=== PATIENT | male | born 1965 | race Caucasian/White ===

== ENCOUNTER → 2016-10-04 | Outpatient (CLI) | payer OTHER ==
[2016-10-04 19:48] LABS: URIC ACID 5.7 MG/DL (3.5-7.2)
[2016-10-07 00:06] LABS: Lyme Disease IgG/IgM Antibodie <0.91 ISR (0.00-0.90); Lyme Disease IgM Ab Quantitati <0.80 index (0.00-0.79)
== END ==
LOC: M LAB 18:29
PROVIDERS: ATTEND Orthopaedic Surgery
DX: R22.31 Localized swelling, mass and lump, right upper limb (principal)

== ENCOUNTER 2017-06-02 06:07 | Emergency (ER) | payer OTHER ==
[2017-06-02 06:54] LABS: BASO % 0.4 % (0.0-1.0); EOS # 0.4 10^3/uL (0.0-0.50); EOS % 7.1 % (0.0-3.0); HEMATOCRIT 42.9 % (42.0-52.0); HEMOGLOBIN 15.1 g/dl (13.5-17.5); IMMATURE GRANULOCYTE % 0.4 % (0-3.0); LYMPH % 35.7 % (24.0-44.0); MEAN CORPUSCULAR HEMOGLOBIN 30.3 pg (27.0-33.0); MEAN CORPUSCULAR HGB CONC 35.2 g/dl (32.0-36.5); MONO # 0.4 10^3/uL (0.0-0.8); MONO % 7.5 % (0.0-5.0); NEUTROPHILS # 2.7 10^3/uL (1.8-7.7); NEUTROPHILS % 48.9 % (36.0-66.0); PLATELET COUNT, AUTOMATED 227 10^3/uL (150-450); RED BLOOD COUNT 4.99 10^6/uL (4.30-6.10); RED CELL DISTRIBUTION WIDTH 12.3 % (11.5-14.5); WHITE BLOOD COUNT 5.6 10^3/uL (4.0-10.0)
[2017-06-02 07:12] LABS: ANION GAP 6 MEQ/L (8-16); BLOOD UREA NITROGEN 16 MG/DL (7-18); CALCIUM LEVEL 8.6 MG/DL (8.5-10.1); CARBON DIOXIDE LEVEL 26 MEQ/L (21-32); CHLORIDE LEVEL 111 MEQ/L (98-107); CK-MB VALUE MASS 1.2 NG/ML (<3.6); CPK CREATINE PHOSPHOKINASE 111 U/L (39-308); CREATININE FOR GFR 0.97 MG/DL (0.70-1.30); GLOMERULAR FILTRATION RATE > 60.0 (>56); GLUCOSE, FASTING 97 MG/DL (70-100); MB/CK RELATIVE INDEX 1.08 (< OR =4); POTASSIUM SERUM 4.3 MEQ/L (3.5-5.1); SODIUM LEVEL 143 MEQ/L (136-145); TROPONIN I < 0.02 NG/ML (< 0.10)
[2017-06-02] MEDS: KETOROLAC 30 MG/ML VIAL (J1885) IV (07:30)
[2017-06-02] MEDS: METHOCARBAMOL 750 MG TAB PO (07:32)
== END 2017-06-02 08:05 | disposition home or self-care (01) ==
LOC: M ED 06:07
DX: S46.812A Strain of other muscles, fascia and tendons at shoulder and upper arm level, left arm, initial encounter (principal); M50.30 Other cervical disc degeneration, unspecified cervical region; M47.9 Spondylosis, unspecified; M12.9 Arthropathy, unspecified; Z79.899 Other long term (current) drug therapy
CPT/HCPCS: J1885

== ENCOUNTER → 2018-03-17 | Outpatient (REF) | payer OTHER ==
[~2018-03-17] MED LIST: CALA240T PO; LIPI20TA PO; LOSA50TA88 PO; NAPR-885 PO; NEXI40CA PO; ROBA500T PO
== END ==
LOC: M LAB REF 11:57
PROVIDERS: ATTEND Internal Medicine
DX: Z51.81 Encounter for therapeutic drug level monitoring (principal); K21.9 Gastro-esophageal reflux disease without esophagitis

== ENCOUNTER → 2018-06-08 | Outpatient (REF) | payer OTHER ==
[2018-06-08 18:25] LABS: C REACTIVE PROTEIN QUANTITATIV 0.56 MG/DL (0.00-0.30); URIC ACID 5.8 MG/DL (3.5-7.2)
[2018-06-11 00:06] LABS: Lyme Disease IgG/IgM Antibodie <0.91 ISR (0.00-0.90); Lyme Disease IgM Ab Quantitati <0.80 index (0.00-0.79)
== END ==
LOC: M LAB REF 17:03
PROVIDERS: ATTEND Internal Medicine
DX: M79.10 Myalgia, unspecified site (principal)

== ENCOUNTER 2019-01-12 01:41 | Inpatient (IN) | payer OTHER ==
[~2019-01-12] VITALS: Ht 172.7 cm; Wt 94.4 kg
[2019-01-12] MEDS ORDERED: OSEL75CA PO ×2 (01:45)
[2019-01-12] MEDS ORDERED: LOPE-39 PO (01:47)
[2019-01-12] MEDS ORDERED: NS 1,000 ML IV SCH (02:05)
[2019-01-12] MEDS ORDERED: MORPHINE 4 MG/ML 1ML VIAL/SYRINGE (J2270) IV ONE ×2 (02:15→05:00)
[2019-01-12 03:03] LABS: BASO % 0.2 % (0.0-1.0); EOS # 0.2 10^3/uL (0.0-0.5); EOS % 1.7 % (0.0-3.0); HEMATOCRIT 36.5 % (42.0-52.0); HEMOGLOBIN 13.1 g/dl (13.5-17.5); LYMPH # 1.4 10^3/uL (1.5-5.0); LYMPH % 14.9 % (24.0-44.0); MEAN CORPUSCULAR HEMOGLOBIN 30.8 pg (27.0-33.0); MEAN CORPUSCULAR HGB CONC 35.9 g/dl (32.0-36.5); MEAN CORPUSCULAR VOLUME 85.7 fl (80.0-96.0); MONO % 11.1 % (0.0-5.0); NEUTROPHILS # 6.7 10^3/uL (1.5-8.5); NEUTROPHILS % 71.9 % (36.0-66.0); PLATELET COUNT, AUTOMATED 183 10^3/uL (150-450); RED BLOOD COUNT 4.26 10^6/uL (4.30-6.10); WHITE BLOOD COUNT 9.3 10^3/uL (4.0-10.0)
[2019-01-12 03:28] LABS: CK-MB VALUE MASS < 1.0 NG/ML (<3.6); CPK CREATINE PHOSPHOKINASE 65 U/L (39-308); MB/CK RELATIVE INDEX 1.54 (< OR =4); TROPONIN I < 0.02 NG/ML (< 0.10)
--- NOTE | 2019-01-12 03:30 | REPVR ---
PROCEDURE INFORMATION: Exam: US Abdomen Limited, Right Upper Quadrant Exam date and time: 01/12/19 (2:53am) Age: 53 years old Clinical history: RUQ pain. Possible cholecystitis. TECHNIQUE: Imaging protocol: Real-time ultrasound of the abdomen with image documentation. Examination was focused on the right upper quadrant. COMPARISON: No relevant prior studies available FINDINGS: The liver is visually normal in size. No focal lesions. Probable fatty infiltration. The gallbladder has normal wall thickness, with no stones nor sludge seen. No pericholecystic fluid is appreciated. The CBD is not dilated (3.8 mm diameter). The pancreas is obscured by bowel gas. The right kidney measures 10.9 cm in length, with no hydronephrosis appreciated. No ascites is seen. IMPRESSION: No acute pathology. The gallbladder is unremarkable, with no stones identified. No biliary obstruction. The pancreas is obscured by bowel gas. Electronically signed by: Kamila Hubbard On 01/12/2019 03:30:14 AM
[2019-01-12 03:31] LABS: BLOOD UREA NITROGEN 10 MG/DL (7-18); GLUCOSE, FASTING 101 MG/DL (70-100)
[2019-01-12 03:32] LABS: ALBUMIN 3.2 GM/DL (3.2-5.2); ALT/SGPT 43 U/L (12-78); BILIRUBIN,DIRECT 0.3 MG/DL (0.0-0.2); BILIRUBIN,TOTAL 0.8 MG/DL (0.2-1.0); CALCIUM LEVEL 8.3 MG/DL (8.5-10.1); CARBON DIOXIDE LEVEL 26 MEQ/L (21-32); CHLORIDE LEVEL 107 MEQ/L (98-107); GLOMERULAR FILTRATION RATE > 60.0 (>56); LIPASE 1755 U/L (73-393); POTASSIUM SERUM 3.5 MEQ/L (3.5-5.1); SODIUM LEVEL 138 MEQ/L (136-145); TOTAL PROTEIN 6.9 GM/DL (6.4-8.2)
[2019-01-12] MEDS ORDERED: ISOVUE-370 76% 100ML VIAL (Q9967) As Ordered ONE (03:37)
[2019-01-12] MEDS ORDERED: VERA180C3 PO (04:07)
[2019-01-12] MEDS ORDERED: ACET-897 PO (04:07)
[2019-01-12] MEDS ORDERED: NEXI40CA PO (04:07)
[2019-01-12] MEDS ORDERED: LOPE2TAB12 PO (04:07)
[2019-01-12] MEDS ORDERED: LOSA100T50 PO (04:07)
[2019-01-12] MEDS ORDERED: ATOR40TA75 PO (04:07)
[2019-01-12] MEDS ORDERED: METH1TAB40 PO (04:09)
[2019-01-12] MEDS ORDERED: CYCL10TA PO (04:09)
--- NOTE | 2019-01-12 04:41 | REPVR ---
PROCEDURE INFORMATION: Exam: CT Abdomen And Pelvis With Contrast Exam date and time: 01/12/2019 3:44 AM Age: 53 years old Clinical history: Abdominal pain; Localized; Other: Central; Additional info: Central abd pain, elevated lipase TECHNIQUE: Imaging protocol: Computed tomography of the abdomen and pelvis with intravenous contrast. Radiation optimization: All CT scans at this facility use at least one of these dose optimization techniques: automated exposure control; mA and/or kV adjustment per patient size (includes targeted exams where dose is matched to clinical indication); or iterative reconstruction. Contrast material: ISOVUE 370; Contrast volume: 100 ml; Contrast route: IV; COMPARISON: US Abdomen 2019-01-12 02:52 FINDINGS: Lungs: Dependent subsegmental pulmonary atelectasis. Liver: Normal. No mass. Gallbladder and bile ducts: Mild haziness around the gallbladder. Pancreas: Pancreatic divisum. No evidence of acute pancreatitis. Spleen: Normal. No splenomegaly. Adrenals: Normal. No mass. Kidneys and ureters: Normal. No hydronephrosis. Stomach and bowel: Excess fluid in the colon. Colonic mucosal enhancement. Correlate for colitis. Gastric wall thickening and enhancement, correlate for gastritis. Appendix: No evidence of appendicitis. Intraperitoneal space: Unremarkable. No free air. No significant fluid collection. Vasculature: Mild to moderate aortic and iliac artery atherosclerotic calcification. Lymph nodes: Subtle minimal herber appearance of the mesentery with tiny scattered lymph nodes. Bladder: Unremarkable as visualized. Reproductive: Unremarkable as visualized. Bones/joints: Unremarkable. No acute fracture. Soft tissues: Unremarkable. IMPRESSION: 1. Excess fluid in the colon. Colonic mucosal enhancement. Correlate for colitis. 2. Gastric wall thickening and enhancement, correlate for gastritis . 3. Mild haziness around the gallbladder. 4. Subtle minimal herber appearance of the mesentery with tiny scattered lymph nodes. 5. Incidental pancreatic divisum. Electronically signed by: Ricky Ochoa On 01/12/2019 04:40:57 AM
--- NOTE | 2019-01-12 04:58 | HPEPDOC ---
[facility] Medical History & Physical Date of Admission Jan 12, 2019 Date of Service: Jan 12, 2019 Primary Care Physician: Yoanna Borjas Attending Physician: JASVIR REIS MD History and Physical TIME OF SERVICE: 5:40 AM CHIEF COMPLAINT: Abdominal pain HISTORY OF PRESENT ILLNESS: This is a 53-year-old male who presents with complaints of central and right upper quadrant abdominal pain that began on Wednesday. He came to the hospital today because the pain got worse. Associated symptoms include nonbloody diarrhea and chills. He denies having fever or vomiting. He has had similar pain in the past, but did not come to the hospital for evaluation. REVIEW OF SYSTEMS: 12 point review of systems negative except as listed in HPI PAST MEDICAL/ SURGICAL HISTORY: Chronic hypertension. Dyslipidemia. Hiatal hernia. Carpal tunnel surgery. Tonsillectomy. Denies personal history of diabetes. SOCIAL HISTORY: He does not smoke. He drinks alcohol frequently and drinks 5-8 beverages every time he drinks. FAMILY HISTORY: Diabetes. Cancer. CAD. ALLERGIES: Please see below. HOME MEDICATIONS: Please see below. PHYSICAL EXAMINATION: VITAL SIGNS: Please see below. GENERAL APPEARANCE: Well nourished, well-developed, appears to be in pain, does not appear toxic HEENT:Normocephalic, atraumatic. Mucous membranes moist and pink. Sclera anicteric CARDIOVASCULAR: Rate and rhythm. No murmurs, rubs or gallops LUNGS:. Clear to auscultation bilaterally on room air ABDOMEN: Positive bowel sounds. Abdomen soft and nontender on palpation MUSCULOSKELETAL: Range of motion intact in all 4 extremities. He does not have lower extremity edema INTEGUMENT: Negative Sibley sign Leland Sign, Pollard's sign. He does not appear jaundiced NEUROLOGICAL: Cranial nerves II-12 are grossly intact. Speech is not dysarthric PSYCHIATRIC: Alert and oriented to person, place and time, able to understand and follow commands LABORATORY DATA: See below. IMAGING: US Liver "IMPRESSION: No acute pathology. The gallbladder is unremarkable, with no stones identified. No biliary obstruction. The pancreas is obscured by bowel gas." CT Abdomen" IMPRESSION: 1. Excess fluid in the colon. Colonic mucosal enhance ment. Correlate for colitis. 2. Gastric wall thickening and enhancement, correlate for gastritis. 3. Mild haziness around the gallbladder. 4. Subtle minimal herber appearance of the mesentery with tiny scattered lymph nodes. 5. Incidental pancreatic divisum. " MICROBIOLOGY: Please see below. ASSESSMENT: Mr. Gonsalez is a 53-year-old with a past medical history of hypertension and dyslipidemia who will be admitted for abdominal pain secondary to pancreatitis & possibly gastritis. PLAN: 1. Abdominal pain 2/2 Pancreatitis and possibly Gastritis Based on the fact that he has abdominal pain and elevated lipase, he may have pancreatitis The CT scan also shows gastritis. Both these may be due to alcohol abuse. Plan: Admit to medical floor / per patient's request CLD / IVF / IV toradol & morphine PRN for pain / Peptobismol & c/w PPI / discussed the importance of abstinence from alcohol 2. Chronic hypertension. Plan: Continue home meds 3. Dyslipidemia. Plan: Continue home meds 4. Alcohol abuse Plan: Ativan, thiamine and folic acid per [facility] protocol with fall and seizure precautions 5. Obesity BMI 30.2 Complicates care Plan: Follow-up A1c/can f/u w PCP for STOP BANG questionnaire practicing urologist consult & referral for Bariatric Surgeon / recommend cardiovascular exercise for 40 min 4-5 days a week DVT prophylaxis Lovenox. Disposition likely home after monitor midnight stay Vital Signs Vital Signs Date Time Temp Pulse Resp B/P (MAP) Pulse Ox O2 Delivery O2 Flow Rate FiO2 01/12/19 03:33 17 98 Room Air 01/12/19 02:18 01/12/19 01:41 97.6 91 Laboratory Data Labs 24H Laboratory Tests 2 01/12/19 02:50: Immature Granulocyte % (Auto) 0.2, Neutrophils (%) (Auto) 71.9H, Lymphocytes (%) (Auto) 14.9L, Monocytes (%) (Auto) 11.1H, Eosinophils (%) (Auto) 1.7, Basophils (%) (Auto) 0.2, Neutrophils # (Auto) 6.7, Lymphocytes # (Auto) 1.4L, Monocytes # (Auto) 1.0H, Eosinophils # (Auto) 0.2, Basophils # (Auto) 0.0, Nucleated Red Blood Cells % (auto) 0.0, Anion Gap 5L, Glomerular Filtration Rate > 60.0, Calcium Level 8.3L, Total Bilirubin 0.8, Direct Bilirubin 0.3H, Aspartate Amino Transf (AST/SGOT) 49H, Alanine Aminotransferase (ALT/SGPT) 43, Alkaline Phosphat ase 89, Total Creatine Kinase 65, Creatine Kinase MB < 1.0, Creatine Kinase MB Relative Index 1.54, Troponin I < 0.02, Total Protein 6.9, Albumin 3.2, Albumin/Globulin Ratio 0.86L, Lipase 1755H CBC/BMP Laboratory Tests 01/12/19 02:50 Home Medications Scheduled Atorvastatin Calcium (Atorvastatin Calcium) 40 Mg Tablet, 40 MG PO QHS Esomeprazole Magnesium (Nexium) 40 Mg Cap, 40 MG PO QHS Losartan Potassium (Losartan Potassium) 100 Mg Tablet, 100 MG PO QHS Verapamil HCl (Verapamil Sr) 180 Mg Cap24h.pel, 180 MG PO QHS Scheduled PRN Acetaminophen (Tylenol Extra Strength) 500 Mg Tablet, 1,000 MG PO Q6H PRN for PAIN Cyclobenzaprine HCl (Cyclobenzaprine HCl) 10 Mg Tablet, 10 MG PO TID PRN for MUSCLE SPASMS Esomeprazole Magnesium (Nexium) 40 Mg Capsule.dr, 40 MG PO DAILY PRN for ACID REFLUX Loperamide HCl (Imodium A-D) 2 Mg Tablet, 2 MG PO Q4H PRN for DIARRHEA Methocarbamol (Methocarbamol) 500 Mg Tablet, 500 MG PO TID PRN for MUSCLE SPASMS Allergies Coded Allergies: No Known Allergies (Unverified , 01/12/19) A-FIB/CHADSVASC A-FIB History Current/History of A-Fib/PAF?: No Current PO Anticoag Therapy: No JASVIR REIS MD Jan 12, 2019 04:57
[2019-01-12] MEDS ORDERED: MORPHINE 2 MG/ML 1ML VIAL (J2270) IV PRN (05:15)
[2019-01-12] MEDS: NS 1,000 ML IV SCH ×3 (05:18→19:53)
[2019-01-12] MEDS: KETOROLAC TROMETHAMINE 10 MG TAB PO SCH ×2 (06:00→17:32)
[2019-01-12] MEDS ORDERED: LORazepam 2 MG TAB PO PRN (06:30)
[2019-01-12] MEDS ORDERED: CYCLOBENZAPRINE 10 MG TAB PO PRN (06:30)
[2019-01-12] MEDS ORDERED: PINK BISMUTH SUSP 524MG/30ML ORAL SYRINGE PO PRN (06:30)
[2019-01-12] MEDS ORDERED: PANTOPRAZOLE 40MG TAB (PROTONIX) PO PRN (06:30)
[2019-01-12] MEDS ORDERED: LOPERAMIDE 2 MG CAPLET PO PRN (06:30)
[2019-01-12 06:39] VITALS: BP 136/73
[2019-01-12 06:49] VITALS: BP 136/73
[2019-01-12] MEDS: THIAMINE 100 MG TAB PO SCH ×2 (06:59→08:04)
[2019-01-12 07:41] LABS: LDH LACTATE DEHYDROGENASE 203 U/L (87-241)
[2019-01-12] MEDS: FOLIC ACID 1 MG TAB PO SCH (08:04)
[2019-01-12] MEDS: MULTIVITAMINS/MINERALS THERAP 1 TAB PO SCH (08:04)
[2019-01-12] MEDS: ENOXAPARIN 40 MG/0.4 ML SYRINGE (J1650) SC SCH (08:05)
[2019-01-12 09:43] LABS: HEMOGLOBIN A1c 5.7 %
[2019-01-12 14:00] VITALS: BP 128/72
--- NOTE | 2019-01-12 18:00 | ECGEPIP ---
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
[2019-01-12] MEDS ORDERED: LOSARTAN 50 MG TAB PO SCH (21:00)
[2019-01-12] MEDS ORDERED: ATORVASTATIN 20 MG TAB PO SCH (21:00)
[2019-01-12 21:31] VITALS: BP 125/55
[2019-01-12 22:00] VITALS: BP_SYST 117; BP_SYST 125; BP_DIAS 55; BP_DIAS 69
[2019-01-13] MEDS: NS 1,000 ML IV SCH (02:44)
[2019-01-13 06:00] VITALS: BP_SYST 114; BP_SYST 145; BP_DIAS 72
[2019-01-13] MEDS: KETOROLAC TROMETHAMINE 10 MG TAB PO SCH (06:00)
[2019-01-13 06:21] LABS: HEMATOCRIT 34.4 % (42.0-52.0); HEMOGLOBIN 11.8 g/dl (13.5-17.5); MEAN CORPUSCULAR HEMOGLOBIN 29.9 pg (27.0-33.0); MEAN CORPUSCULAR HGB CONC 34.3 g/dl (32.0-36.5); MEAN CORPUSCULAR VOLUME 87.3 fl (80.0-96.0); PLATELET COUNT, AUTOMATED 182 10^3/uL (150-450); RED BLOOD COUNT 3.94 10^6/uL (4.30-6.10); WHITE BLOOD COUNT 5.5 10^3/uL (4.0-10.0)
[2019-01-13 06:44] LABS: BLOOD UREA NITROGEN 6 MG/DL (7-18); CALCIUM LEVEL 7.8 MG/DL (8.5-10.1); CARBON DIOXIDE LEVEL 26 MEQ/L (21-32); CHLORIDE LEVEL 111 MEQ/L (98-107); CREATININE FOR GFR 0.83 MG/DL (0.70-1.30); GLOMERULAR FILTRATION RATE > 60.0 (>56); GLUCOSE, FASTING 88 MG/DL (70-100); PHOSPHORUS LEVEL 2.1 MG/DL (2.5-4.9); POTASSIUM SERUM 3.7 MEQ/L (3.5-5.1); SODIUM LEVEL 143 MEQ/L (136-145)
[2019-01-13] MEDS ORDERED: METHOCARBAMOL 500 MG TAB PO PRN (08:15)
[2019-01-13] MEDS ORDERED: ACETAMINOPHEN 500 MG TAB PO PRN (08:15)
[2019-01-13] MEDS: THIAMINE 100 MG TAB PO SCH (08:46)
[2019-01-13] MEDS: ENOXAPARIN 40 MG/0.4 ML SYRINGE (J1650) SC SCH (08:46)
[2019-01-13] MEDS: MULTIVITAMINS/MINERALS THERAP 1 TAB PO SCH (08:46)
[2019-01-13] MEDS: FOLIC ACID 1 MG TAB PO SCH (08:46)
[2019-01-13] MEDS ORDERED: FLUBLOK(EGG FREE)(QUAD)INFLUENZA VACC 0.5ML SYRINGE (90682)18YRS&OLDER IM ONE (09:00)
[2019-01-13] MEDS ORDERED: POTASSIUM PHOSPHATE INJ 20 MMOL in D5W 250 ML IV ONE (10:00)
[2019-01-13] MEDS ORDERED: K-PHOS NEUTRAL 250MG TABLET (SOD.PHOSPHATE/POT.PHOSPHATE) PO ONE ×3 (10:30→14:30)
[2019-01-13] MEDS ORDERED: POTASSIUM CHLORIDE 10 MEQ SR TABLET PO ONE (10:30)
--- NOTE | 2019-01-13 18:36 | DS.PDOC ---
Discharge Summary General Date of Admission Jan 12, 2019 at 04:57 Date of Discharge 01/13/2019 Attending Physician: LUPIS ALFONSO MD Discharge Summary PROCEDURES PERFORMED DURING STAY: None. ADMITTING DIAGNOSES: 1. Gastritis, pancreatitis. DISCHARGE DIAGNOSES: 1. Gastritis, pancreatitis. COMPLICATIONS/CHIEF COMPLAINT: Acute Pancreatitis. HISTORY OF PRESENT ILLNESS: 53-year-old male for gastritis and acute pancreatitis. He has a long-standing history of Thompson's esophagus, treated with PPI, drinks vodka intermittently, which may have been the cause of gastritis and pancreatitis. Patient with abdominal pain, nausea/vomiting upon presentation, now asymptomatic, treated with IV hydration. Patient is back to his baseline, tolerating diet, without any complaints, will be discharged with outpatient follow with gas enterolysis. Patient is clinically and hemodynamically stable for discharge and outpatient follow-up. HOSPITAL COURSE: As above. DISCHARGE MEDICATIONS: Please see below. ALLERGIES: Please see below. PHYSICAL EXAMINATION: VITAL SIGNS: Please see below. GENERAL: No distress HEENT: Normocephalic, atraumatic, moist mucous membranes NECK: Supple CARDIOVASCULAR EXAMINATION: S1, S2, no murmurs RESPIRATORY EXAMINATION: Clear to auscultation, no wheezing ABDOMINAL EXAMINATION: Soft, nontender, nondistended, positive bowel sounds EXTREMITIES: Range of motion intact SKIN: No rash NEUROLOGICAL EXAMINATION: Alert and oriented 3, no focal deficits PSYCHIATRIC EXAMINATION: Calm and cooperative LABORATORY DATA: Please see below. IMAGING: CT with gastritis and possible colitis PROGNOSIS: Fair ACTIVITY: As tolerated. DIET: Regular DISCHARGE PLAN: Follow-up with senior trainer and PCP in 1-2 weeks DISPOSITION: 01 Home, Self-Care. DISCHARGE INSTRUCTIONS: 1. As above. DISCHARGE CONDITION: Stable. TIME SPENT ON DISCHARGE: Greater than 25 minutes. Vital Signs/I&Os Vital Signs Date Time Temp Pulse Resp B/P (MAP) Pulse Ox O2 Delivery O2 Flow Rate FiO2 01/13/19 06:00 70 145/72 01/13/19 06:00 97.6 18 95 01/12/19 14:00 Room Air I&O- Last 24 Hours up to 6 AM 01/13/19 06:00 Intake Total 3030 ml Balance 3030 ml Laboratory Data Labs 24H Laboratory Tests 2 01/13/19 05:42: Nucleated Red Blood Cells % (auto) 0.0, Anion Gap 6L, Glomerular Filtration Rate > 60.0, Calcium Level 7.8L, Phosphorus Level 2.1L, Magnesium Level 2.0 CBC/BMP Laboratory Tests 01/13/19 05:42 Discharge Medications Scheduled Atorvastatin Calcium (Atorvastatin Calcium) 40 Mg Tablet, 40 MG PO QHS, (Reported) Esomeprazole Magnesium (Nexium) 40 Mg Cap, 40 MG PO QHS, (Reported) Losartan Potassium (Losartan Potassium) 100 Mg Tablet, 100 MG PO QHS, (Reported) Verapamil HCl (Verapamil Sr) 180 Mg Cap24h.pel, 180 MG PO QHS, (Reported) Scheduled PRN Acetaminophen (Tylenol Extra Strength) 500 Mg Tablet, 1,000 MG PO Q6H PRN for PAIN, (Reported) Cyclobenzaprine HCl (Cyclobenzaprine HCl) 10 Mg Tablet, 10 MG PO TID PRN for MUSCLE SPASMS, (Reported) Esomeprazole Magnesium (Nexium) 40 Mg Capsule.dr, 40 MG PO DAILY PRN for ACID REFLUX, (Reported) Loperamide HCl (Imodium A-D) 2 Mg Tablet, 2 MG PO Q4H PRN for DIARRHEA, (Reported) Methocarbamol (Methocarbamol) 500 Mg Tablet, 500 MG PO TID PRN for MUSCLE SPASMS, (Reported) Allergies Coded Allergies: No Known Allergies (Unverified , 01/12/19) LUPIS ALFONSO MD Jan 13, 2019 18:36
[2019-01-13] MEDS ORDERED: PANTOPRAZOLE 40MG TAB (PROTONIX) PO SCH (21:00)
[2019-01-13] MEDS ORDERED: VERAPAMIL 180MG EXTENDED RELEASE TABLET PO SCH (21:00)
== END 2019-01-13 14:10 | disposition home or self-care (01) | DRG 391 ==
LOC: M ED 01:41 → M ED INP 04:57 → M MSPAV 06:40
PROVIDERS: ADMIT Internal Medicine; ATTEND Internal Medicine
DX: K29.20 Alcoholic gastritis without bleeding (principal); K85.90 Acute pancreatitis without necrosis or infection, unspecified; F10.20 Alcohol dependence, uncomplicated; I10 Essential (primary) hypertension; E78.5 Hyperlipidemia, unspecified; Z90.49 Acquired absence of other specified parts of digestive tract; E66.9 Obesity, unspecified; Z68.30 Body mass index [BMI] 30.0-30.9, adult; Z79.899 Other long term (current) drug therapy; K22.70 Barrett's esophagus without dysplasia

== ENCOUNTER → 2019-01-18 | Outpatient (REF) | payer OTHER ==
[~2019-01-18] MED LIST changes: +ACET-897 PO; +ATOR40TA75 PO; +CYCL10TA PO; +LOPE-39 PO; +LOPE2TAB12 PO; +LOSA100T50 PO; +METH1TAB40 PO; +OSEL75CA PO; +VERA180C3 PO
[2019-01-18 17:06] LABS: C REACTIVE PROTEIN QUANTITATIV 0.44 MG/DL (0.00-0.30)
== END ==
LOC: M LAB REF 13:17
PROVIDERS: ATTEND Internal Medicine
DX: R10.9 Unspecified abdominal pain (principal)

== ENCOUNTER → 2019-02-26 | Outpatient (CLI) | payer OTHER ==
[2019-02-26 14:52] LABS: LIPASE 208 U/L (73-393)
[2019-02-28 09:55] LABS: CA19-9 TUMOR MARKER,CARBOHYDRA < 1.2 U/ML (<35.0)
[2019-02-28 10:07] LABS: ANTINUCLEAR ANTIBODIES DIRECT Negative (Negative)
== END ==
LOC: M LAB 14:04
PROVIDERS: ATTEND Internal Medicine Gastroenterology
DX: K85.90 Acute pancreatitis without necrosis or infection, unspecified (principal); K22.70 Barrett's esophagus without dysplasia

== ENCOUNTER → 2019-07-28 | Outpatient (CLI) | payer OTHER ==
[~2019-07-28] MED LIST changes: +CYCL-707 PO; -CYCL10TA PO
[2019-07-28 19:08] LABS: ALBUMIN 3.7 GM/DL (3.2-5.2); BILIRUBIN,DIRECT 0.1 MG/DL (0.0-0.2); BILIRUBIN,TOTAL 0.4 MG/DL (0.2-1.0); TOTAL PROTEIN 6.5 GM/DL (6.4-8.2)
== END ==
LOC: M LAB 18:00
PROVIDERS: ATTEND Internal Medicine Gastroenterology
DX: R10.13 Epigastric pain (principal); K85.90 Acute pancreatitis without necrosis or infection, unspecified

== ENCOUNTER → 2019-09-08 | Outpatient (CLI) | payer OTHER ==
[2019-10-26 19:38] LABS: ALBUMIN 4.2 GM/DL (3.2-5.2); ALT/SGPT 37 U/L (12-78); BILIRUBIN,TOTAL 0.6 MG/DL (0.2-1.0); BLOOD UREA NITROGEN 12 MG/DL (7-18); CALCIUM LEVEL 8.7 MG/DL (8.5-10.1); CARBON DIOXIDE LEVEL 29 MEQ/L (21-32); CHLORIDE LEVEL 106 MEQ/L (98-107); CREATININE FOR GFR 0.96 MG/DL (0.70-1.30); GLOMERULAR FILTRATION RATE > 60.0 (>56); GLUCOSE, FASTING 77 MG/DL (70-100); POTASSIUM SERUM 3.8 MEQ/L (3.5-5.1); SODIUM LEVEL 139 MEQ/L (136-145); TOTAL PROTEIN 7.1 GM/DL (6.4-8.2)
== END ==
LOC: M LAB 06:07
PROVIDERS: ATTEND Internal Medicine Gastroenterology
DX: K85.90 Acute pancreatitis without necrosis or infection, unspecified (principal); R10.13 Epigastric pain; Q45.3 Other congenital malformations of pancreas and pancreatic duct

== ENCOUNTER 2020-02-07 07:20 | Emergency (ER) | payer OTHER ==
[~2020-02-07] VITALS: Ht 172.7 cm; Wt 98.5 kg
[2020-02-07] MEDS ORDERED: BOOSTRIX/ADACEL VACCINE (DIPHTH/PERTUSS/ACELL/TETANUS) 0.5ML SYR IM ONE (08:00)
--- NOTE | 2020-02-07 08:15 | REP ---
INDICATION: trauma, pain. COMPARISON: None. TECHNIQUE: Four views. FINDINGS: Four views of the right elbow demonstrate normal bones, joints, and soft tissues. No fracture or subluxation is seen. No opaque foreign body noted. IMPRESSION: Negative right elbow series. <Electronically signed by Gabo Mendez > 02/07/20 [id number]
--- NOTE | 2020-02-07 08:17 | REP ---
INDICATION: trauma, pain COMPARISON: None. TECHNIQUE: AP, lateral views of the right forearm FINDINGS: The osseous structures and joint spaces are intact and normal. There is no evidence for acute fracture or dislocation. Surrounding soft tissues are unremarkable. No subcutaneous emphysema or radiodense foreign body. IMPRESSION: . No acute fracture or dislocation. <Electronically signed by Darell Alarcon > 02/07/20 [id number]
[2020-02-07 09:17] VITALS: BP 143/74
== END 2020-02-07 09:19 | disposition home or self-care (01) ==
LOC: M ED 07:20
DX: S53.401A Unspecified sprain of right elbow, initial encounter (principal); S50.01XA Contusion of right elbow, initial encounter; S40.212A Abrasion of left shoulder, initial encounter; W00.0XXA Fall on same level due to ice and snow, initial encounter; Y92.018 Other place in single-family (private) house as the place of occurrence of the external cause; I10 Essential (primary) hypertension; E78.5 Hyperlipidemia, unspecified; K21.9 Gastro-esophageal reflux disease without esophagitis; K44.9 Diaphragmatic hernia without obstruction or gangrene; R51.9 Headache, unspecified; Z79.899 Other long term (current) drug therapy

== ENCOUNTER 2020-08-13 11:46 | Emergency (ER) | payer OTHER ==
[~2020-08-13] VITALS: Ht 172.7 cm; Wt 94.6 kg
[~2020-08-13 11:46] MED LIST changes: +METH-1164 PO; -METH1TAB40 PO
[2020-08-13] MEDS ORDERED: IBUP200C25 PO (12:43)
[2020-08-13] MEDS ORDERED: MORPHINE 4 MG/ML 1ML VIAL/SYRINGE (J2270) IV PRN (16:10)
[2020-08-13] MEDS ORDERED: ONDANSETRON 4MG/2ML VIAL IV ONE (16:10)
[2020-08-13] MEDS ORDERED: NS 1,000 ML IV ONE (16:10)
[2020-08-13 17:36] LABS: BASO % 0.3 % (0.0-1.0); EOS # 0.3 10^3/uL (0.0-0.5); EOS % 3.1 % (0.0-3.0); HEMATOCRIT 44.5 % (42.0-52.0); HEMOGLOBIN 15.2 g/dl (13.5-17.5); LYMPH # 1.8 10^3/uL (1.5-5.0); LYMPH % 20.4 % (24.0-44.0); MEAN CORPUSCULAR HGB CONC 34.2 g/dl (32.0-36.5); MEAN CORPUSCULAR VOLUME 87.8 fl (80.0-96.0); MONO # 0.6 10^3/uL (0.0-0.8); MONO % 7.4 % (2.0-8.0); NEUTROPHILS % 68.5 % (36.0-66.0); PLATELET COUNT, AUTOMATED 224 10^3/uL (150-450); RED BLOOD COUNT 5.07 10^6/uL (4.30-6.10); WHITE BLOOD COUNT 8.7 10^3/uL (4.0-10.0)
[2020-08-13 17:58] LABS: ALT/SGPT 25 U/L (12-78); BILIRUBIN,DIRECT 0.2 MG/DL (0.0-0.2); BILIRUBIN,TOTAL 0.7 MG/DL (0.2-1.0); BLOOD UREA NITROGEN 16 MG/DL (7-18); CALCIUM LEVEL 9.2 MG/DL (8.5-10.1); CARBON DIOXIDE LEVEL 29 MEQ/L (21-32); CHLORIDE LEVEL 105 MEQ/L (98-107); CREATININE FOR GFR 0.85 MG/DL (0.70-1.30); GLOMERULAR FILTRATION RATE > 60.0 (>56); GLUCOSE, FASTING 80 MG/DL (70-100); LIPASE 772 U/L (73-393); POTASSIUM SERUM 4.3 MEQ/L (3.5-5.1); SODIUM LEVEL 140 MEQ/L (136-145); TOTAL PROTEIN 7.7 GM/DL (6.4-8.2)
[2020-08-13] MEDS ORDERED: ISOVUE-370 76% 100ML VIAL As Ordered ONE (18:19)
[2020-08-13] MEDS ORDERED: HYDR-3715 PO (18:35)
--- NOTE | 2020-08-13 19:24 | REPVR ---
PROCEDURE INFORMATION: Exam: CT Abdomen And Pelvis With Contrast Exam date and time: 08/13/2020 6:44 PM Age: 55 years old Clinical indication: Other: Panceratitis TECHNIQUE: Imaging protocol: Computed tomography of the abdomen and pelvis with contrast. Radiation optimization: All CT scans at this facility use at least one of these dose optimization techniques: automated exposure control; mA and/or kV adjustment per patient size (includes targeted exams where dose is matched to clinical indication); or iterative reconstruction. Contrast material: ISOVUE 370; Contrast volume: 100 ml; Contrast route: INTRAVENOUS (IV); COMPARISON: CT ABD/PEL W/IV CONTRAST ONLY 01/12/2019 3:42 AM FINDINGS: Liver: There is a diffuse decrease in hepatic parenchymal density, consistent with steatosis. 6 mm benign appearing hypodensity posterior segment right lobe of the liver not evaluated on this single phase examination. Liver otherwise unremarkable. Gallbladder and bile ducts: Normal. No calcified stones. No ductal dilation. Pancreas: Mild edema demonstrated at the duodenal pancreatic junction. Findings which can indicate either duodenitis or localized pancreatitis. Spleen: Normal. No splenomegaly. Adrenal glands: Normal. No mass. Kidneys and ureters: Normal. No hydronephrosis. Stomach and bowel: Unremarkable. No obstruction. No mucosal thickening. Appendix: No evidence of appendicitis. Intraperitoneal space: Unremarkable. No free air. No significant fluid collection. Vasculature: The aortoiliac vessels demonstrate mild atherosclerotic calcification. Lymph nodes: Unremarkable. No enlarged lymph nodes. Urinary bladder: Unremarkable as visualized. Reproductive: Unremarkable as visualized. Bones/joints: Moderate central spinal stenosis L3-L4, [id number] central spinal stenosis L4-L5. Bulging annulus L5-S1. Soft tissues: There is a small umbilical hernia. There is no evidence of incarceration. IMPRESSION: 1. There is a diffuse decrease in hepatic parenchymal density, consistent with steatosis. 2. Mild edema demonstrated at the duodenal pancreatic junction. Findings which can indicate either duodenitis or localized pancreatitis. Electronically signed by: Slim Perez On 08/13/2020 19:23:52 PM
[2020-08-13] MEDS ORDERED: OXYCODONE/APAP 5MG/325MG(BULK FOR ED) 1 TABLET PO ONE (19:50)
[2020-08-13 20:08] VITALS: BP 176/83
--- NOTE | 2020-08-14 08:44 | ED PDOC ---
Post-Departure Follow-Up dr britt faxed formal report of ct abd/p for fu Dagoberto Reddy MD Aug 14, 2020 08:44
== END 2020-08-13 20:17 | disposition home or self-care (01) ==
LOC: M ED 11:46
DX: K85.90 Acute pancreatitis without necrosis or infection, unspecified (principal); I10 Essential (primary) hypertension; E78.5 Hyperlipidemia, unspecified; Z79.899 Other long term (current) drug therapy
CPT/HCPCS: 74177; 80048; 80076; 83690; 85025; 96361; 96374; 96375; 99284; J2270; J2405; Q9967

== ENCOUNTER 2020-08-15 05:59 | Inpatient (IN) | payer OTHER ==
[~2020-08-15] VITALS: Ht 172.7 cm; Wt 94.9 kg
[~2020-08-15 05:59] MED LIST changes: +HYDR-3715 PO; +IBUP200C25 PO
[2020-08-15] MEDS ORDERED: ONDANSETRON 4MG/2ML VIAL IV ONE (06:35)
[2020-08-15] MEDS ORDERED: MORPHINE 4 MG/ML 1ML VIAL/SYRINGE (J2270) IV ONE (06:35)
[2020-08-15] MEDS ORDERED: NS 1,000 ML IV ONE (06:35)
[2020-08-15 06:42] LABS: BASO % 0.2 % (0.0-1.0); EOS # 0.3 10^3/uL (0.0-0.5); EOS % 3.3 % (0.0-3.0); HEMATOCRIT 42.9 % (42.0-52.0); HEMOGLOBIN 14.9 g/dl (13.5-17.5); LYMPH # 1.5 10^3/uL (1.5-5.0); LYMPH % 17.1 % (24.0-44.0); MEAN CORPUSCULAR HEMOGLOBIN 30.4 pg (27.0-33.0); MEAN CORPUSCULAR HGB CONC 34.7 g/dl (32.0-36.5); MEAN CORPUSCULAR VOLUME 87.6 fl (80.0-96.0); MONO # 0.6 10^3/uL (0.0-0.8); NEUTROPHILS # 6.2 10^3/uL (1.5-8.5); NEUTROPHILS % 72.2 % (36.0-66.0); PLATELET COUNT, AUTOMATED 206 10^3/uL (150-450); WHITE BLOOD COUNT 8.6 10^3/uL (4.0-10.0)
[2020-08-15] MEDS ORDERED: PANTOPRAZOLE 40MG VIAL (C9113 PER 1) IV ONE (06:45)
[2020-08-15] MEDS ORDERED: ISOVUE-370 76% 100ML VIAL As Ordered ONE (06:53)
[2020-08-15 07:08] LABS: ALBUMIN 3.8 GM/DL (3.2-5.2); ALT/SGPT 28 U/L (12-78); AMYLASE 71 U/L (25-115); BILIRUBIN,DIRECT 0.2 MG/DL (0.0-0.2); BILIRUBIN,TOTAL 0.7 MG/DL (0.2-1.0); BLOOD UREA NITROGEN 14 MG/DL (7-18); CALCIUM LEVEL 8.4 MG/DL (8.5-10.1); CARBON DIOXIDE LEVEL 30 MEQ/L (21-32); CHLORIDE LEVEL 103 MEQ/L (98-107); CK-MB VALUE MASS < 1.0 NG/ML (<3.6); CPK CREATINE PHOSPHOKINASE 74 U/L (39-308); CREATININE FOR GFR 1.09 MG/DL (0.70-1.30); GLOMERULAR FILTRATION RATE > 60.0 (>56); GLUCOSE, FASTING 125 MG/DL (70-100); LIPASE 293 U/L (73-393); MB/CK RELATIVE INDEX 1.35 (< OR =4); POTASSIUM SERUM 3.9 MEQ/L (3.5-5.1); SODIUM LEVEL 138 MEQ/L (136-145); TROPONIN I < 0.02 NG/ML (< 0.10)
--- NOTE | 2020-08-15 08:03 | REP ---
INDICATION: epigastric, RUQ ttp, h/o pancreatitis. COMPARISON: Comparison is made with this morning's CT study of the abdomen and pelvis. There is also a CT study of the abdomen and pelvis from the August.. TECHNIQUE: Right upper quadrant sonography. FINDINGS: Scanning through the right upper quadrant of the abdomen demonstrates a normal sized, thin-walled gallbladder without evidence of stone or polyp. Common bile duct is normal measuring 0.5 cm in greatest diameter. No focal liver lesion is seen. Liver size is normal. The pancreas is obscured by abdominal gas. No right renal abnormality is seen. There is no evidence of ascites. The right kidney measures 11.7 x 6.1 x 5.2 cm. IMPRESSION: Pancreas is obscured by gas. Otherwise negative right upper quadrant sonography. <Electronically signed by Gabo Mendez > 08/15/20 [id number]
--- NOTE | 2020-08-15 08:15 | REPVR ---
PROCEDURE INFORMATION: Exam: XR Chest Exam date and time: 08/15/2020 6:40 AM Age: 55 years old Clinical indication: Other: Epigasric pain; Additional info: Epigastric pain TECHNIQUE: Imaging protocol: XR of the chest. Views: 1 view. COMPARISON: CT ABD/PEL W/IV CONTRAST ONLY 08/13/2020 6:43 PM FINDINGS: Lungs: Unremarkable. No consolidation. Pleural spaces: Unremarkable. No pleural effusion. No pneumothorax. Heart/Mediastinum: Unremarkable. No cardiomegaly. Bones/joints: Unremarkable. IMPRESSION: No acute infiltrates. Electronically signed by: Talon Jacinto On 08/15/2020 08:15:07 AM
--- NOTE | 2020-08-15 08:24 | REPVR ---
PROCEDURE INFORMATION: Exam: CT Abdomen And Pelvis With Contrast Exam date and time: 08/15/2020 6:35 AM Age: 55 years old Clinical indication: Abdominal pain; Epigastric; Additional info: Epigstric abd pain, dx with pancreatitis 08/13/20 TECHNIQUE: Imaging protocol: Computed tomography of the abdomen and pelvis with contrast. Radiation optimization: All CT scans at this facility use at least one of these dose optimization techniques: automated exposure control; mA and/or kV adjustment per patient size (includes targeted exams where dose is matched to clinical indication); or iterative reconstruction. Contrast material: ISOVUE 370; Contrast volume: 100 ml; Contrast route: INTRAVENOUS (IV); COMPARISON: CT ABD/PEL W/IV CONTRAST ONLY 08/13/2020 6:43 PM FINDINGS: Lungs: Calcified granuloma in the left lower lobe of the lung. Liver: Normal. No mass. Gallbladder and bile ducts: Gallbladder is unremarkable. There is no biliary dilatation. Pancreas: No ductal dilation. Minimal haziness around the pancreatic head. No pancreatic necrosis. No pancreatic pseudocyst. Spleen: Normal. No splenomegaly. Adrenal glands: Normal. No mass. Kidneys and ureters: Normal. No hydronephrosis. 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 Much of the small bowel is located in the right pericolic gutter. No obstruction. No mucosal thickening. Negative for colonic diverticulitis. Right colon is located just right of midline. Appendix: The appendix is not seen. However, there is no evidence of appendicitis. Intraperitoneal space: Mild haziness of the mesentery in the right mid abdomen. No free fluid. No free air. Vasculature: Unremarkable. No abdominal aortic aneurysm. Lymph nodes: Unremarkable. No enlarged lymph nodes. Urinary bladder: Unremarkable as visualized. Reproductive: Prostate is normal in size. There are calcifications within the prostate which are likely incidental. Bones/joints: Moderate degenerative spine. No acute fracture. Soft tissues: Unremarkable. IMPRESSION: 1. Mild haziness of the mesentery in the right mid abdomen. No change prior. Consistent with known pancreatitis. 2. 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 Electronically signed by: Talon Jacinto On 08/15/2020 08:24:00 AM
[2020-08-15] MEDS ORDERED: MOM 30ML SUSPENSION UDC PO PRN (09:00)
[2020-08-15] MEDS ORDERED: HYDR-3713 PO (09:23)
[2020-08-15] MEDS ORDERED: MORPHINE 4 MG/ML 1ML VIAL/SYRINGE (J2270) IV PRN (10:20)
[2020-08-15] MEDS ORDERED: oxyCODONE 5MG TAB PO PRN (10:20)
[2020-08-15] MEDS ORDERED: ACETAMINOPHEN TAB 650MG DOSE (2X325MG) PO PRN (10:20)
[2020-08-15 10:52] LABS: RSV AMPLIFICATION NEGATIVE (NEGATIVE)
--- NOTE | 2020-08-15 10:53 | HPEPDOC ---
[facility] Medical History & Physical Date of Admission Aug 15, 2020 Date of Service: Aug 15, 2020 History and Physical CHIEF COMPLAINT: Left upper quadrant abdominal pain HISTORY OF PRESENT ILLNESS: 55-year-old male with a past medical history of hypertension, dyslipidemia, hiatal hernia, pancreatitis with known pancreatic divisum follows with Dr. Tilley in [place], presented to the ER 2 days after being seen for recurrent pain secondary to pancreatitis diagnosed on 08/13/20. She was found at that time to have a lipase of approximately 800. Was discharged home on clear liquid diet and pain control. Patient states he ate a few crackers and some water and the pain this morning became unbearable. His initial bout of pancreatitis and 08/13/20 was likely precipitated by drinking 6 Alcoholic beverages on August 11 weekend. Patient denies any vomiting, nausea, blood in the stool, blood in the urine, palpitations, chest pain or headache. Lipase has normalized. No leukocytosis. No fever. 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 Liver US did not indicated cholelithiasis. Dr. Hodges was contacted by the ER and recommended admission for pain control. At this time, Patient appears comfortable in the ER. Will be admitted to hospitalist service for pain control. PAST MEDICAL HISTORY: Recurrent pancreatitis Known pancreatic divisum, follows with GI Dr. Tilley in [place], [place] Chronic hypertension. Dyslipidemia. Hiatal hernia. Carpal tunnel surgery. Tonsillectomy. SOCIAL HISTORY: Drinks etoh 2 times per wee ~1-2 drinks. last drink August 11 denies smoking denies illicit drug use FAMILY HISTORY: strong family hx of esophageal cancer (2 brothers). Has screening EGD with Dr. Tilley in [place]. ALLERGIES: Please see below. REVIEW OF SYSTEMS: 10 point ROS was conducted, relevant findings were noted in the HPI. HOME MEDICATIONS: Please see below. PHYSICAL EXAMINATION: VITAL SIGNS: please see below General: NAD, comfortable HEENT: PERRLA, EOMI, sclerae clear Neck: supple, normal ROM, no JVD Respiratory: lungs CTAB, no wheeze, no rales, no crackles CVS: RRR, normal S1, S2, no murmurs Abdo: Abdomen is soft, I'll to moderate pain to palpation on the left upper quadrant. No guarding, no rigidity. Bowel sounds intact. Extremities: no edema, pulses 2+ MSK: no joint deformities, normal ROM Neuro: no focal neuro deficits, moving all 4 extremities, CN2-12 intact. Strength 5/5 in all 4 extremities. No nystagmus. Psych: calm, cooperative, AAO x 3 LABORATORY DATA: See below. IMAGING: CT abdo pelvis w IV contrast (08/15/20): 1. Mild haziness of the mesentery in the right mid abdomen. No change prior. Consistent with known pancreatitis. 2. 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 Gallbladder US (08/15/20): FINDINGS: Scanning through the right upper quadrant of the abdomen demonstrates a normal sized, thin-walled gallbladder without evidence of stone or polyp. Common bile duct is normal measuring 0.5 cm in greatest diameter. No focal liver lesion is seen. Liver size is normal. The pancreas is obscured by abdominal gas. No right renal abnormality is seen. There is no evidence of ascites. The right kidney measures 11.7 x 6.1 x 5.2 cm. IMPRESSION: Pancreas is obscured by gas. Otherwise negative right upper quadrant sonography. CXR (08/15/20): IMPRESSION: No acute infiltrates. MICROBIOLOGY: Please see below. ASSESSMENT: 55-year-old male with a past medical history of hypertension, dyslipidemia, hiatal hernia, pancreatitis with known pancreatic divisum follows with Dr. Tilley in [place], presented to the ER 2 days after being seen for recurrent pain secondary to pancreatitis diagnosed on 08/13/20. Patient returns to ER with recurrent pain 2/2 pancreatitis as seen on CT imaging. Incidental findings of midgut malrotation, without obstruction. . PLAN: #Persistent abdominal pain 2/2 recurrent pancreatitis - seen in ER on 08/13/20. Lipase ~800. CT findings c/w pancreatitis - returns after 2 days, for recurrent pain. Unable to tolerate PO - repeat CT showing pancreatitis. Commented on incidental midgut malrotation wo obstruction - CT reviewed by Dr. Hodges, does not believe there to be malrotation - obtain abdominal US doppler, assess SMA, portal system to ensure no obstruction - pain control, morphine 2 mg q4h IV prn for breakthrough, oxycodone for maintenance - CLD started - PPI IV ordered - will start on IV NS 125 cc/hr - will need to f/u with Dr. Tilley, his GI in [place], [place], for known pancreatic divisum #HTN - resume home meds: losartan, verapamil #GERD - takes omeprazole - will start IV ppi while inpatient DVT ppx: lovenox, SCDs, TEDs. Vital Signs Vital Signs Date Time Temp Pulse Resp B/P (MAP) Pulse Ox O2 Delivery O2 Flow Rate FiO2 08/15/20 07:04 18 08/15/20 07:00 58 117/56 (76) 98 Room Air 08/15/20 06:00 97.0 Laboratory Data Labs 24H Laboratory Tests 2 08/15/20 06:30: Immature Granulocyte % (Auto) 0.2, Neutrophils (%) (Auto) 72.2H, Lymphocytes (%) (Auto) 17.1L, Monocytes (%) (Auto) 7.0, Eosinophils (%) (Auto) 3.3H, Basophils (%) (Auto) 0.2, Neutrophils # (Auto) 6.2, Lymphocytes # (Auto) 1.5, Monocytes # (Auto) 0.6, Eosinophils # (Auto) 0.3, Basophils # (Auto) 0.0, Nucleated Red Blood Cells % (auto) 0.0, Anion Gap 5L, Glomerular Filtration Rate > 60.0, Calcium Level 8.4L, Total Bilirubin 0.7, Direct Bilirubin 0.2, Aspartate Amino Transf (AST/SGOT) 23, Alanine Aminotransferase (ALT/SGPT) 28, Alkaline Phosphatase 76, Total Creatine Kinase 74, Creatine Kinase MB < 1.0, Creatine Kinase MB Relative Index 1.35, Troponin I < 0.02, Total Protein 7.0, Albumin 3.8, Albumin/Globulin Ratio 1.2, Amylase Level 71, Lipase 293 08/15/20 09:46: CBC/BMP Laboratory Tests 08/15/20 06:30 Home Medications Scheduled Atorvastatin Calcium (Atorvastatin Calcium) 40 Mg Tablet, 40 MG PO QHS Esomeprazole Magnesium (Nexium) 40 Mg Cap, 40 MG PO QHS Losartan Potassium (Losartan Potassium) 100 Mg Tablet, 100 MG PO QHS Verapamil HCl (Verapamil Sr) 180 Mg Cap24h.pel, 180 MG PO QHS Scheduled PRN Acetaminophen (Tylenol Extra Strength) 500 Mg Tablet, 1,000 MG PO Q6H PRN for PAIN LEVEL 1-5 Hydrocodone/Acetaminophen (Hydrocodone-Acetamin 5-325 mg) 1 Each Tablet, 1 TAB PO TID PRN for PAIN LEVEL 5-10 Allergies Coded Allergies: No Known Allergies (Unverified , 01/12/19) A-FIB/CHADSVASC A-FIB History Current/History of A-Fib/PAF?: No Current PO Anticoag Therapy: No MICHAEL SOTELO MD Aug 15, 2020 10:53
[2020-08-15] MEDS ORDERED: MAALOX 30 ML SUSP *UDC PO PRN (11:00)
[2020-08-15 13:15] VITALS: BP 135/71
[2020-08-15] MEDS: NS 1,000 ML IV SCH ×2 (13:40→20:07)
[2020-08-15] MEDS: DOCUSATE SODIUM 100MG CAPSULE PO SCH ×2 (13:40→20:08)
[2020-08-15] MEDS: PANTOPRAZOLE 40MG VIAL (C9113 PER 1) IV SCH (13:40)
[2020-08-15] MEDS: ENOXAPARIN 40MG/0.4ML SYRINGE (J1650 PER 10MG) SC SCH ×2 (13:40→13:52)
[2020-08-15 20:08] VITALS: BP 135/71
[2020-08-15] MEDS ORDERED: ATORVASTATIN 20 MG TAB PO SCH (21:00)
[2020-08-15] MEDS ORDERED: LOSARTAN 50MG TABLET PO SCH (21:00)
[2020-08-15] MEDS ORDERED: VERAPAMIL 180MG EXTENDED RELEASE TABLET PO SCH (21:00)
[2020-08-15 22:00] VITALS: BP 155/91
[2020-08-16] MEDS: NS 1,000 ML IV SCH ×2 (03:56→10:55)
[2020-08-16 06:00] VITALS: BP 122/58
[2020-08-16 08:34] LABS: BASO % 0.3 % (0.0-1.0); EOS # 0.4 10^3/uL (0.0-0.5); HEMATOCRIT 41.6 % (42.0-52.0); HEMOGLOBIN 14.1 g/dl (13.5-17.5); LYMPH # 1.5 10^3/uL (1.5-5.0); LYMPH % 19.4 % (24.0-44.0); MEAN CORPUSCULAR HEMOGLOBIN 30.1 pg (27.0-33.0); MEAN CORPUSCULAR HGB CONC 33.9 g/dl (32.0-36.5); MEAN CORPUSCULAR VOLUME 88.7 fl (80.0-96.0); MONO # 0.5 10^3/uL (0.0-0.8); MONO % 6.1 % (2.0-8.0); NEUTROPHILS # 5.2 10^3/uL (1.5-8.5); NEUTROPHILS % 68.9 % (36.0-66.0); PLATELET COUNT, AUTOMATED 211 10^3/uL (150-450); RED BLOOD COUNT 4.69 10^6/uL (4.30-6.10); WHITE BLOOD COUNT 7.6 10^3/uL (4.0-10.0)
[2020-08-16 09:00] LABS: ALBUMIN 3.4 GM/DL (3.2-5.2); ALT/SGPT 31 U/L (12-78); BILIRUBIN,TOTAL 0.5 MG/DL (0.2-1.0); BLOOD UREA NITROGEN 8 MG/DL (7-18); CALCIUM LEVEL 8.2 MG/DL (8.5-10.1); CARBON DIOXIDE LEVEL 27 MEQ/L (21-32); CHLORIDE LEVEL 111 MEQ/L (98-107); CREATININE FOR GFR 0.81 MG/DL (0.70-1.30); GLOMERULAR FILTRATION RATE > 60.0 (>56); GLUCOSE, FASTING 91 MG/DL (70-100); MAGNESIUM LEVEL 2.2 MG/DL (1.8-2.4); POTASSIUM SERUM 4.3 MEQ/L (3.5-5.1); SODIUM LEVEL 142 MEQ/L (136-145); TOTAL PROTEIN 6.5 GM/DL (6.4-8.2)
[2020-08-16] MEDS: ENOXAPARIN 40MG/0.4ML SYRINGE (J1650 PER 10MG) SC SCH (09:00)
[2020-08-16] MEDS: DOCUSATE SODIUM 100MG CAPSULE PO SCH (09:18)
[2020-08-16] MEDS: PANTOPRAZOLE 40MG VIAL (C9113 PER 1) IV SCH (09:19)
[2020-08-16] MEDS ORDERED: NEXI40CA PO (10:59)
[2020-08-16] MEDS ORDERED: HYDR-3713 PO (10:59)
--- NOTE | 2020-08-16 11:04 | DS.PDOC ---
Discharge Summary General Date of Admission Aug 15, 2020 at 10:28 Date of Discharge 08/16/20 Discharge Summary PROCEDURES PERFORMED DURING STAY: [None]. COMPLICATIONS/CHIEF COMPLAINT: Acute Pancreatitis. HISTORY OF PRESENT ILLNESS: 55-year-old male with a past medical history of hypertension, dyslipidemia, hiatal hernia, pancreatitis with known pancreatic divisum follows with Dr. Tilley in [place], presented to the ER 2 days after being seen for recurrent pain secondary to pancreatitis diagnosed on 08/13/20. She was found at that time to have a lipase of approximately 800. Was discharged home on clear liquid diet and pain control. Patient states he ate a few crackers and some water and the pain this morning became unbearable. His initial bout of pancreatitis and 08/13/20 was likely precipitated by drinking 6 Alcoholic beverages on August 11 weekend. Patient denies any vomiting, nausea, blood in the stool, blood in the urine, palpitations, chest pain or headache. Lipase has normalized. No leukocytosis. No fever. 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 Liver US did not indicated cholelithiasis. Dr. Hodges was contacted by the ER and recommended admission for pain control. At this time, Patient appears comfortable in the ER. Will be admitted to hospitalist service for pain control. HOSPITAL COURSE: #Persistent abdominal pain 2/2 recurrent pancreatitis - seen in ER on 08/13/20. Lipase ~800. CT findings c/w pancreatitis - returns after 2 days, for recurrent pain. Unable to tolerate PO - repeat CT showing pancreatitis. Commented on incidental midgut malrotation wo obstruction - CT reviewed by Dr. Hodges, does not believe there to be malrotation, SMA straight - abdominal US doppler shows normal flow through portal vasculature, but was unable to visualize asplenic vein, SMV and SMA - pain control, morphine 2 mg q4h IV prn for breakthrough, oxycodone for maintenance - On day of discharge. Pain resolved, tolerating FLD. - will need to f/u with Dr. Tilley, his GI in [place], [place], for known pancreatic divisum #HTN - resume home meds: losartan, verapamil #GERD - takes omeprazole DISCHARGE MEDICATIONS: Please see below. ALLERGIES: Please see below. PHYSICAL EXAMINATION ON DISCHARGE: VITAL SIGNS: Please see below. General: NAD, comfortable HEENT: PERRLA, EOMI, sclerae clear Neck: supple, normal ROM, no JVD Respiratory: lungs CTAB, no wheeze, no rales, no crackles CVS: RRR, normal S1, S2, no murmurs Abdo: soft, no masses, no hepatosplenomegaly, BS+, no rebound tenderness Extremities: no edema, pulses 2+ MSK: no joint deformities, normal ROM Neuro: no focal neuro deficits, moving all 4 extremities, CN2-12 intact. Strength 5/5 in all 4 extremities. No nystagmus. Psych: calm, cooperative, AAO x 3 LABORATORY DATA: Please see below. IMAGING: CT abdo pelvis w IV contrast (08/15/20): 1. Mild haziness of the mesentery in the right mid abdomen. No change prior. Consistent with known pancreatitis. 2. 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 Gallbladder US (08/15/20): FINDINGS: Scanning through the right upper quadrant of the abdomen demonstrates a normal sized, thin-walled gallbladder without evidence of stone or polyp. Common bile duct is normal measuring 0.5 cm in greatest diameter. No focal liver lesion is seen. Liver size is normal. The pancreas is obscured by abdominal gas. No right renal abnormality is seen. There is no evidence of ascites. The right kidney measures 11.7 x 6.1 x 5.2 cm. IMPRESSION: Pancreas is obscured by gas. Otherwise negative right upper quadrant sonography. CXR (08/15/20): IMPRESSION: No acute infiltrates. Doppler Abdo US (08/16/20): FINDINGS: The gallbladder and the liver, as well as right kidney, were imaged yesterday. Common bile duct is normal in caliber measuring 6 mm. Spleen is normal in length with no intrinsic abnormality, measuring 11.9 cm in length. There is no evidence of hydronephrosis, cyst, mass, or calculus of the left kidney. Left renal dimensions are 11.4 x 5.4 x 5.6 cm. The abdominal aorta is not visualized. No free fluid is seen. The main portal vein measures 10 mm in diameter. The splenic vein and portal veins demonstrate normal direction of flow, with normal flow velocities and waveforms. There is no portal vein thrombosis. Hepatic veins are patent with no thrombus. Patent main hepatic artery demonstrates peak systolic velocity of 87.7 centimeters/second. The central aspect of the splenic vein and the superior mesenteric vein are not visualized due to overlying bowel gas. The superior mesenteric artery is not visualized due to overlying bowel gas. IMPRESSION: Portal vasculature demonstrates normal direction of flow with no thrombosis. No evidence of hepatic vein thrombosis. The central aspect of the splenic vein, the superior mesenteric vein and the superior mesenteric artery could not be visualized due to overlying bowel gas. PROGNOSIS: good ACTIVITY: [As tolerated]. DIET: advance from clear liquids as tolerated. Low fat diet. DISCHARGE PLAN: DC home to advance diet as tolerated from clear liquids. Pain with hydrocodone. Continue taking nexium. Patient to follow-up with Dr. Tilley, his GI in [place]. Avoid alcohol as this seems to be the precipitant for acute pancreatitis. DISPOSITION: home self care DISCHARGE INSTRUCTIONS: . Please follow-up with your primary care doctor within 3-5 days . Please taking medications as prescribed. . If you develop bleeding, chest pain, shortness of breath, seizures, nausea, fevers, or otherwise worsening of your symptoms, please call 911 or return to the nearest emergency room DISCHARGE CONDITION: [Stable]. TIME SPENT ON DISCHARGE: 35 minutes Vital Signs/I&Os Vital Signs Date Time Temp Pulse Resp B/P (MAP) Pulse Ox O2 Delivery O2 Flow Rate FiO2 08/16/20 06:00 96.9 64 20 122/58 (79) 97 Room Air I&O- Last 24 Hours up to 6 AM 08/16/20 06:00 Intake Total 1480 ml Balance 1480 ml Laboratory Data Labs 24H Laboratory Tests 2 08/16/20 08:19: Immature Granulocyte % (Auto) 0.3, Neutrophils (%) (Auto) 68.9H, Lymphocytes (%) (Auto) 19.4L, Monocytes (%) (Auto) 6.1, Eosinophils (%) (Auto) 5.0H, Basophils (%) (Auto) 0.3, Neutrophils # (Auto) 5.2, Lymphocytes # (Auto) 1.5, Monocytes # (Auto) 0.5, Eosinophils # (Auto) 0.4, Basophils # (Auto) 0.0, Nucleated Red Blood Cells % (auto) 0.0, Anion Gap 4L, Glomerular Filtration Rate > 60.0, Calcium Level 8.2L, Magnesium Level 2.2, Total Bilirubin 0.5, Aspartate Amino Transf (AST/SGOT) 19, Alanine Aminotransferase (ALT/SGPT) 31, Alkaline Phosphatase 69, Total Protein 6.5, Albumin 3.4, Albumin/Globulin Ratio 1.1 CBC/BMP Laboratory Tests 08/16/20 08:19 Discharge Medications Scheduled Atorvastatin Calcium (Atorvastatin Calcium) 40 Mg Tablet, 40 MG PO QHS, (Reported) Esomeprazole Magnesium (Nexium) 40 Mg Cap, 40 MG PO QHS Losartan Potassium (Losartan Potassium) 100 Mg Tablet, 100 MG PO QHS, (Reported) Verapamil HCl (Verapamil Sr) 180 Mg Cap24h.pel, 180 MG PO QHS, (Reported) Scheduled PRN Acetaminophen (Tylenol Extra Strength) 500 Mg Tablet, 1,000 MG PO Q6H PRN for PAIN LEVEL 1-5, (Reported) Hydrocodone/Acetaminophen (Hydrocodone-Acetamin 5-325 mg) 1 Each Tablet, 1 TAB PO TID PRN for PAIN LEVEL 5-10 Allergies Coded Allergies: No Known Allergies (Unverified , 01/12/19) MICHAEL SOTELO MD Aug 16, 2020 11:03
--- NOTE | 2020-08-16 11:38 | REP ---
INDICATION: EVAL LIVER CIRCULATION AND SMA FLOW. COMPARISON: None. CT 08/15/2020. TECHNIQUE: Real-time sonographic evaluation and DUPLEX DOPPLER EVALUATION OF PORTAL VASCULATURE. FINDINGS: The gallbladder and the liver, as well as right kidney, were imaged yesterday. Common bile duct is normal in caliber measuring 6 mm. Spleen is normal in length with no intrinsic abnormality, measuring 11.9 cm in length. There is no evidence of hydronephrosis, cyst, mass, or calculus of the left kidney. Left renal dimensions are 11.4 x 5.4 x 5.6 cm. The abdominal aorta is not visualized. No free fluid is seen. The main portal vein measures 10 mm in diameter. The splenic vein and portal veins demonstrate normal direction of flow, with normal flow velocities and waveforms. There is no portal vein thrombosis. Hepatic veins are patent with no thrombus. Patent main hepatic artery demonstrates peak systolic velocity of 87.7 centimeters/second. The central aspect of the splenic vein and the superior mesenteric vein are not visualized due to overlying bowel gas. The superior mesenteric artery is not visualized due to overlying bowel gas. IMPRESSION: Portal vasculature demonstrates normal direction of flow with no thrombosis. No evidence of hepatic vein thrombosis. The central aspect of the splenic vein, the superior mesenteric vein and the superior mesenteric artery could not be visualized due to overlying bowel gas. <Electronically signed by Jose Mcneal > 08/16/20 [id number]
[2020-08-16 14:00] VITALS: BP 159/71
--- NOTE | 2020-08-16 16:30 | ECGEPIP ---
[facility] - ED Test Date: 2020-08-15 Pat Name: JEREMY VAZQUEZ Department: Room: [place] [address] Gender: Male [employer]: : 1965 Requested By: MAT Chavez PA-C Order Number: [id number] Reading MD: Ricky Parra Measurements Intervals [place] Rate: 60 P: 40 OH: 158 QRS: 7 QRSD: 82 T: 73 QT: 422 QTc: 422 Interpretive Statements Normal sinus rhythm Possible Inferior infarct , age undetermined Nonspecific T wave abnormality Similar to tracing done 01-12-19 Electronically Signed on 08-16-2020 16:30:17 EDT by Ricky Parra
== END 2020-08-16 14:30 | disposition home or self-care (01) | DRG 440 ==
LOC: M ED 05:59 → M ED INP 10:28 → ENRESERV 11:49 → M MS5PR 13:11
PROVIDERS: ADMIT Family Medicine; ATTEND Family Medicine
DX: K85.90 Acute pancreatitis without necrosis or infection, unspecified (principal); I10 Essential (primary) hypertension; E78.5 Hyperlipidemia, unspecified; K21.9 Gastro-esophageal reflux disease without esophagitis; Z79.899 Other long term (current) drug therapy; Z20.822 Contact with and (suspected) exposure to COVID-19

== ENCOUNTER → 2021-09-17 | Outpatient (REF) | payer OTHER ==
[~2021-09-17] MED LIST changes: +HYDR-3713 PO; +LOSA100T45 PO; -LOSA100T50 PO; +LOSA50TA28 PO; -LOSA50TA88 PO
== END ==
LOC: M LAB REF 11:39
PROVIDERS: ATTEND Internal Medicine
DX: M25.50 Pain in unspecified joint (principal)

== ENCOUNTER → 2023-07-08 | Outpatient (CLI) | payer OTHER ==
[~2023-07-08] MED LIST changes: -LOSA100T45 PO; +LOSA100T46 PO
[2023-07-08 08:37] LABS: TOTAL 25(OH) VITAMIN D 25.6 NG/ML (20.0-100.0)
== END ==
LOC: M LAB 07:26
PROVIDERS: ATTEND Internal Medicine Gastroenterology
DX: K22.70 Barrett's esophagus without dysplasia (principal)

== ENCOUNTER 2023-09-21 14:05 | Emergency (ER) | payer OTHER ==
[~2023-09-21] VITALS: Ht 172.7 cm; Wt 93.5 kg
[2023-09-21] MEDS: predniSONE 20 MG TAB PO ONE (18:36)
[2023-09-21] MEDS: KETOROLAC TROMETHAMINE 10 MG TAB PO ONE (18:36)
[2023-09-21] MEDS: valACYclovir HCL 500 MG TAB PO ONE (18:36)
[2023-09-21 18:41] LABS: HEMATOCRIT 44.9 % (42.0-52.0); HEMOGLOBIN 15.4 g/dl (13.5-17.5); MEAN CORPUSCULAR HEMOGLOBIN 30.7 pg (27.0-33.0); MEAN CORPUSCULAR HGB CONC 34.3 g/dl (32.0-36.5); MEAN CORPUSCULAR VOLUME 89.4 fl (80.0-96.0); PLATELET COUNT, AUTOMATED 162 10^3/uL (150-450); RED BLOOD COUNT 5.02 10^6/uL (4.30-6.10); WHITE BLOOD COUNT 5.7 10^3/uL (4.0-10.0)
[2023-09-21 18:47] LABS: ERYTHROCYTE SEDIMENTATION RATE 12 mm/hr (0-20)
[2023-09-21 19:14] LABS: BLOOD UREA NITROGEN 15 MG/DL (9-23); CALCIUM LEVEL 8.9 MG/DL (8.3-10.6); CARBON DIOXIDE LEVEL 30 MMOL/L (20-31); CHLORIDE LEVEL 106 MMOL/L (98-107); CREATININE FOR GFR 0.93 MG/DL (0.70-1.30); GLOMERULAR FILTRATION RATE > 60.0 (>49); GLUCOSE, FASTING 80 MG/DL (74-106); SODIUM LEVEL 138 MMOL/L (136-145)
[2023-09-21] MEDS ORDERED: VALA1TAB5 PO (19:29)
[2023-09-21] MEDS ORDERED: CIPR7.5D2 AS (19:29)
[2023-09-21] MEDS ORDERED: PRED20TA PO (19:29)
[2023-09-21] MEDS ORDERED: HYDR-3713 PO (19:32)
[2023-09-21 19:55] VITALS: BP 167/73; TEMP 97.2; O2SAT 96
== END 2023-09-21 19:56 | disposition home or self-care (01) ==
LOC: M ED 14:05
DX: B02.8 Zoster with other complications (principal); H72.822 Total perforations of tympanic membrane, left ear; K21.9 Gastro-esophageal reflux disease without esophagitis; I10 Essential (primary) hypertension; E78.5 Hyperlipidemia, unspecified; F10.10 Alcohol abuse, uncomplicated; Z79.1 Long term (current) use of non-steroidal anti-inflammatories (NSAID); Z79.2 Long term (current) use of antibiotics; Z79.52 Long term (current) use of systemic steroids; Z79.899 Other long term (current) drug therapy
CPT/HCPCS: 36415; 80048; 85027; 85652; 86140; 99283; J7512

== ENCOUNTER 2023-09-23 07:16 | Emergency (ER) | payer OTHER ==
[~2023-09-23] VITALS: Ht 172.7 cm; Wt 93.6 kg
[~2023-09-23 07:16] MED LIST changes: +CIPR7.5D2 AS; +PRED20TA PO; +VALA1TAB5 PO
[2023-09-23] MEDS: FLUORESCEIN OPHTH 1MG STRIP OS ONE (07:45)
[2023-09-23] MEDS: TETRACAINE 0.5% OPHTH SOLN 4ML OS ONE (07:45)
[2023-09-23 08:06] LABS: BASO % 0.4 % (0.0-1.0); EOS # 0.2 10^3/uL (0.0-0.5); EOS % 1.9 % (0.0-3.0); HEMATOCRIT 44.3 % (42.0-52.0); HEMOGLOBIN 15.2 g/dl (13.5-17.5); LYMPH # 1.6 10^3/uL (1.5-5.0); LYMPH % 19.6 % (24.0-44.0); MEAN CORPUSCULAR HEMOGLOBIN 30.6 pg (27.0-33.0); MEAN CORPUSCULAR HGB CONC 34.3 g/dl (32.0-36.5); MEAN CORPUSCULAR VOLUME 89.1 fl (80.0-96.0); MONO # 0.8 10^3/uL (0.0-0.8); MONO % 9.6 % (2.0-8.0); NEUTROPHILS # 5.6 10^3/uL (1.5-8.5); NEUTROPHILS % 68.1 % (36.0-66.0); PLATELET COUNT, AUTOMATED 180 10^3/uL (150-450); RED BLOOD COUNT 4.97 10^6/uL (4.30-6.10); WHITE BLOOD COUNT 8.3 10^3/uL (4.0-10.0)
[2023-09-23] MEDS: ONDANSETRON 4MG 2ML VIAL IV ONE (08:06)
[2023-09-23] MEDS: MORPHINE 4 MG/ML 1ML VIAL IV ONE (08:06)
[2023-09-23 08:10] LABS: ERYTHROCYTE SEDIMENTATION RATE 19 mm/hr (0-20)
[2023-09-23 08:34] LABS: BLOOD UREA NITROGEN 17 MG/DL (9-23); CALCIUM LEVEL 8.8 MG/DL (8.3-10.6); CARBON DIOXIDE LEVEL 30 MMOL/L (20-31); CHLORIDE LEVEL 105 MMOL/L (98-107); GLOMERULAR FILTRATION RATE > 60.0 (>49); GLUCOSE, FASTING 96 MG/DL (74-106); POTASSIUM SERUM 4.1 MMOL/L (3.5-5.1); SODIUM LEVEL 139 MMOL/L (136-145)
[2023-09-23] MEDS: MAGIC MOUTHWASH 5ML ORAL SYRINGE SS ONE (08:47)
[2023-09-23 08:57] LABS: ALBUMIN 3.9 G/DL (3.2-5.2); ALKALINE PHOSPHATASE 62 U/L (46-116); ALT/SGPT 22 U/L (7.0-40); AST/SGOT 17 U/L (<34); BILIRUBIN,DIRECT 0.2 MG/DL (<0.4); BILIRUBIN,TOTAL 0.5 MG/DL (0.3-1.2); TOTAL PROTEIN 6.9 G/DL (5.7-8.2)
[2023-09-23] MEDS: valACYclovir HCL 500 MG TAB PO ONE (10:36)
[2023-09-23] MEDS: methylPREDNISolone 125MG 2ML VIAL IV ONE (10:37)
[2023-09-23] MEDS: GABAPENTIN 300 MG CAP PO ONE (10:37)
[2023-09-23] MEDS: AMPICILLIN SOD/SULBACTAM SOD 3 GM in D5W MINI-BAG PLUS 100 ML IV ONE (10:37)
[2023-09-23] MEDS: ACETAMINOPHEN 500 MG TAB PO ONE (10:37)
[2023-09-23] MEDS: NS 1,000 ML IV ONE (11:20)
[2023-09-23] MEDS ORDERED: MAGICMW SSP (11:36)
[2023-09-23] MEDS ORDERED: CIPRHCOTIC OTIC (11:36)
[2023-09-23] MEDS ORDERED: GABA-284 PO (11:37)
[2023-09-23 12:28] VITALS: BP 148/71; TEMP 97; O2SAT 96
== END 2023-09-23 12:33 | disposition home or self-care (01) ==
LOC: M ED 07:16
DX: B02.9 Zoster without complications (principal); I10 Essential (primary) hypertension; E78.5 Hyperlipidemia, unspecified; F10.10 Alcohol abuse, uncomplicated; Z79.1 Long term (current) use of non-steroidal anti-inflammatories (NSAID); Z79.2 Long term (current) use of antibiotics; Z79.52 Long term (current) use of systemic steroids; Z79.899 Other long term (current) drug therapy
CPT/HCPCS: 80048; 80076; 85025; 85652; 86140; 96361; 96365; 96374; 96375; 99284; J0295; J2405; J2919

== ENCOUNTER 2023-10-22 01:14 | Emergency (ER) | payer OTHER ==
[~2023-10-22] VITALS: Ht 172.7 cm; Wt 97.5 kg
[~2023-10-22 01:14] MED LIST changes: +CIPRHCOTIC OTIC; +GABA-284 PO; +MAGICMW SSP
[2023-10-22 06:36] VITALS: BP 160/82; TEMP 97.1; O2SAT 98
== END 2023-10-22 06:37 | disposition home or self-care (01) ==
LOC: M ED 01:14
DX: H60.92 Unspecified otitis externa, left ear (principal); I10 Essential (primary) hypertension; E78.5 Hyperlipidemia, unspecified; K21.9 Gastro-esophageal reflux disease without esophagitis; Z79.1 Long term (current) use of non-steroidal anti-inflammatories (NSAID); Z79.2 Long term (current) use of antibiotics; Z79.52 Long term (current) use of systemic steroids; Z79.899 Other long term (current) drug therapy

== ENCOUNTER → 2023-10-26 | Outpatient (REF) | payer OTHER | LOC: M LAB REF 17:28 | PROVIDERS: ATTEND Otolaryngology | DX: H60.8X2 Other otitis externa, left ear (principal) ==

== ENCOUNTER → 2023-12-30 | Outpatient (CLI) | payer OTHER ==
[2023-12-30 10:14] LABS: BLOOD UREA NITROGEN 13 MG/DL (9-23); CREATININE FOR GFR 0.82 MG/DL (0.70-1.30); GLOMERULAR FILTRATION RATE > 60.0 (>49)
== END ==
LOC: M RAD 07:37
PROVIDERS: ATTEND Psychiatry & Neurology Neurology
DX: I10 Essential (primary) hypertension (principal)

== ENCOUNTER → 2024-03-22 | Outpatient (REF) | payer OTHER ==
[2024-03-22 14:19] LABS: C REACTIVE PROTEIN QUANTITATIV < 0.50 MG/DL (<1.0)
[2024-03-22 14:20] LABS: RHEUMATOID FACTOR QUANT < 3.5 IU/ML (<14)
== END ==
LOC: M LAB REF 12:29
PROVIDERS: ATTEND Internal Medicine
DX: M79.645 Pain in left finger(s) (principal)

== ENCOUNTER → 2024-03-23 | Outpatient (CLI) | payer OTHER | LOC: M RAD 06:09 | PROVIDERS: ATTEND Internal Medicine | DX: M79.641 Pain in right hand (principal) ==